=== PATIENT | female | born 1995 | race Caucasian/White ===

== ENCOUNTER 2016-08-05 13:25 | Outpatient (CLI) | payer MEDICAID ==
[2016-08-05] MEDS ORDERED: Cyclobenzaprine 10 MG Tab PO ONE (14:35)
== END 2016-08-05 16:10 | disposition home or self-care (01) ==
LOC: MW.OBCHECK 13:25 → MW.OB 13:27 → MW.OBCHECK 16:10
PROVIDERS: ATTEND Obstetrics & Gynecology
DX: O26.899 Other specified pregnancy related conditions, unspecified trimester (principal); M54.9 Dorsalgia, unspecified
CPT/HCPCS: 80305; 81003; A9270

== ENCOUNTER → 2016-09-02 | Outpatient (CLI) | payer MEDICAID ==
[2016-09-02 15:35] LABS: HIV12 AG/AB 4TH GEN W/REFLEX 0.2 (<1.0)
== END ==
LOC: MW.CHOBGYN 13:26
PROVIDERS: ATTEND Obstetrics & Gynecology
DX: O09.30 Supervision of pregnancy with insufficient antenatal care, unspecified trimester (principal)
CPT/HCPCS: 36415; 80305; 81003; 82950; 85027; 86592; 86762; 86803; 86850; 86900; 86901; 87086; 87340; 87389; 87480; 87491; 87510; 87591; 87660; G0145

== ENCOUNTER → 2016-09-09 | Outpatient (CLI) | payer MEDICAID ==
--- NOTE | 2016-09-09 16:31 | US ---
Examination: Greater than 14 weeks transabdominal ultrasound with color and spectral Doppler HISTORY: Supervision of FINDINGS: LMP is 02/08/2016 EVALUATION: Posterior placenta with a cephalic lie and grade 2. Visually amniotic fluid is wit hin normal limits. Three-vessel cord is seen. Ventricles are within normal limits. Four chamber heart is noted. Heart rate is 143 beats per minute. BIOMETRY AND GESTATIONAL AGE: Biparietal diameter 7.8 cm. The abdominal circumference measures 26.3 cm. The femoral length is 5.8 cm with head circumference of 20.7 cm. Gestational age is 30 weeks and 4 days. The expected date of delivery is approximately 11/11/2016. Fetus weight is 1596 grams. Overall the fetus is within the 37t h percentile. Limited anatomic survey due to gestational age. No anatomical anomalies identified. IMPRESSION: Single active IU with cephalic fetus. Posterior placenta with grade 2, no placenta previa. No anomalies are seen. Amniotic fluid appears within normal limits.
== END ==
LOC: MW.US 14:46
PROVIDERS: ATTEND Obstetrics & Gynecology
DX: O09.33 Supervision of pregnancy with insufficient antenatal care, third trimester (principal); R76.8 Other specified abnormal immunological findings in serum; Z3A.30 30 weeks gestation of pregnancy
CPT/HCPCS: 36415; 76805; 76805-26; 87522; 87902

== ENCOUNTER → 2016-10-01 | Outpatient (CLI) | payer MEDICAID | LOC: MW.CHOBGYN 14:34 | PROVIDERS: ATTEND Obstetrics & Gynecology | DX: Z34.90 Encounter for supervision of normal pregnancy, unspecified, unspecified trimester (principal); R76.8 Other specified abnormal immunological findings in serum | CPT/HCPCS: 36415; 80076; 81003 ==

== ENCOUNTER 2016-11-08 13:35 | Inpatient (IN) | payer MEDICAID ==
[2016-11-08] MEDS: Lactated Ringers 1,000 ML IV SCH (20:40)
[2016-11-08] MEDS ORDERED: Water For Irrigation,Sterile 1,000 ML Container IRR PRN (20:44)
[2016-11-08] MEDS ORDERED: Methylergonovine 0.2 MG/1 ML Amp IM PRN (20:44)
[2016-11-08] MEDS ORDERED: Nalbuphine 10 MG/1 ML Vial IVPUSH PRN (20:44)
[2016-11-08] MEDS ORDERED: Misoprostol 200 MCG Tab PO PRN (20:44)
[2016-11-08] MEDS ORDERED: Sodium Chloride 0.9% 2.5 ML Syringe FLUSH PRN (20:44)
[2016-11-08] MEDS ORDERED: Carboprost Tromethamine 250 MCG/1 ML Amp IM PRN (20:44)
[2016-11-08] MEDS ORDERED: Sodium Chloride 0.9% 10 ML Syringe FLUSH PRN (20:44)
[2016-11-08] MEDS ORDERED: Misoprostol 25 MCG (1/4 of 100 MCG) Tab PO PRN (20:44)
[2016-11-08] MEDS ORDERED: Terbutaline 1 MG/ML SDV SUBCUT PRN (20:44)
[2016-11-08] MEDS ORDERED: Lidocaine 1% 50 ML MDV INJECT PRN (20:44)
[2016-11-08] MEDS ORDERED: Misoprostol 25 MCG (1/4 of 100 MCG) Tab VAG PRN (20:44)
[2016-11-08] MEDS ORDERED: Misoprostol 25 MCG (1/4 of 100 MCG) Tab VAG SCH (20:45)
[2016-11-08] MEDS ORDERED: Oxytocin/Lactated Ringers 30 UNIT/500 ML BAG IV SCH ×2 (20:45)
[2016-11-08] MEDS ORDERED: Misoprostol 25 MCG (1/4 of 100 MCG) Tab PO SCH (20:45)
[2016-11-08] MEDS: Butorphanol 1 MG/ML SDV IVPUSH PRN (22:39)
--- NOTE | 2016-11-08 22:55 | PCM.LDHP ---
L&D History of Present Illness - General Date of Service: 11/08/16 Admit Problem/Dx: Patient Status Order with Admit Dx/Problem 11/08/16 20:44 Patient Status [ADT] Routine Admission Diagnosis/Problem Admission Diagnosis/Problem Source of Information: Patient History Limitations: Reports: No Limitations - History of Present Illness Pain Score: 7 Improves with: Reports: None Worsens with: Reports: None Associated Symptoms: Reports: N - Related Data Allergies/Adverse Reactions: Allergies Allergy/AdvReac Type Severity Reaction Status Date / Time Penicillins Allergy unknown Verified 10/25/16 00:04 Home Medications: Home Meds Azithromycin [Z-Luis] 250 mg PO DAILY #1 pack 02/10/14 [Rx] Lurasidone [Latuda] 20 mg PO DAILY 02/10/14 [History] Vit W-Ca,Fe,FA(<1 mg) [ Vitamins] 1 tab PO DAILY 10/25/16 [ History] Social & Family History - Tobacco Use Smoking Status *Q: Current Every Day Smoker Years of Tobacco use: 5 - Alcohol Use Days Per Week of Alcohol Use: 0 - Recreational Drug Use Recreational Drug Use: Yes Drug Use in Last 12 Months: Yes Recreational Drug Type: Reports: Marijuana/Hashish Recreational Drug Use Frequency: Binges H&P Review of Systems - Review of Systems: Review Of Systems: See Below General: Reports: No Symptoms HEENT: Reports: No Symptoms Pulmonary: Reports: No Symptoms Cardiovascular: Reports: No Symptoms Gastrointestinal: Reports: No Symptoms Genitourinary: Reports: No Symptoms Musculoskeletal: Reports: No Symptoms Skin: Reports: No Symptoms Psychiatric: Reports: No Symptoms Neurological: Reports: No Symptoms Hematologic/Lymphatic: Reports: No Symptoms Immunologic: Reports: No Symptoms L&D Exam - Exam Exam: See Below - Vital Signs Weight: 92.533 kg - OB Specific Fundal Height In cm: 39 Contraction Intensity: Mild Movement: Active Heart Tones: Present Heart Tones per Min: 133 Heart Rate (FHR) Variability: Moderate (6-25 bmp) Presentation: Vertex - Sierra Score Sierra Score Effacement: 31-50% Sierra Score Dilation: 1-2 cm Sierra Score 's Station: -2 - Patient Data Lab Results Last 24 hrs: Laboratory Results - last 24 hr 11/08/16 11/08/16 Range/Units 21:38 21:38 WBC 10.24 (4.0-11.0) K/uL RBC 3.86 L (4.30-5.90) M/uL Hgb 11.5 L (12.0-16.0) g/dL Hct 34.7 L (36.0-46.0) % MCV 89.9 (80.0-98.0) fL MCH 29.8 (27.0-32.0) pg MCHC 33.1 (31.0-37.0) g/dL RDW Std Deviation 46.7 (28.0-62.0) fl RDW Coeff of Gifty 14 (11.0-15.0) % Plt Count 187 (150-400) K/uL MPV 11.50 (7.40-12.00) fL Nucleated RBC % 0.0 /100WBC Nucleated RBCs # 0 K/uL Blood Type O POSITIVE Antibody Screen NEGATIVE Result Diagrams: 11/08/16 21:38 Problem List Initiated/Reviewed/Updated: Yes Orders Last 24hrs: Active Orders 24 hr Category Date Time Status Patient Status [ADT] Routine ADT 11/08/16 20:44 Active Bedrest Bathroom Privileges [RC] ASDIRECTED Care 11/08/16 20:44 Active Communication Order [RC] ASDIRECTED Care 11/08/16 20:44 Active Communication Order [RC] ASDIRECTED Care 11/08/16 20:44 Active Communication Order [RC] ASDIRECTED Care 11/08/16 20:44 Active Heart Tones [RC] CONTINUOUS Care 11/08/16 20:44 Active Non Stress Test [RC] PER UNIT ROUTINE Care 11/08/16 20:44 Active May Shower [RC] ASDIRECTED Care 11/08/16 20:44 Active Notify Provider [RC] PRN Care 11/08/16 20:44 Active Notify Provider [RC] PRN Care 11/08/16 20:44 Active Notify Provider [RC] PRN Care 11/08/16 20:44 Active Notify Provider [RC] STAT Care 11/08/16 20:44 Active Oxygen Therapy [RC] ASDIRECTED Care 11/08/16 20:44 Active Up ad Chel [RC] ASDIRECTED Care 11/08/16 20:44 Active Vaginal Exam [RC] PRN Care 11/08/16 20:44 Active Vaginal Exam [RC] PRN Care 11/08/16 20:44 Active Vital Signs [RC] PER UNIT ROUTINE Care 11/08/16 20:44 Active Vital Signs [RC] PER UNIT ROUTINE Care 11/08/16 20:44 Active Butorphanol [Stadol] Med 11/08/16 20:44 Active 1 mg IVPUSH ASDIRECTED PRN Carboprost Tromethamine [Hemabate DS] Med 11/08/16 20:44 Active 250 mcg IM ASDIRECTED PRN Lactated Ringers [Ringers, Lactated] 1,000 ml Med 11/08/16 20:45 Active IV ASDIRECTED Lidocaine 1% [Xylocaine 1%] Med 11/08/16 20:44 Active 50 ml INJECT .ONCE PRN Methylergonovine [Methergine] Med 11/08/16 20:44 Active 0.2 mg IM ASDIRECTED PRN Misoprostol [Cytotec] Med 11/08/16 20:44 Active 200 mcg PO .ONCE PRN Misoprostol [Cytotec] Med 11/08/16 20:45 Active 25 mcg PO .ONCE Misoprostol [Cytotec] Med 11/08/16 20:44 Active 25 mcg PO Q4H PRN Misoprostol [Cytotec] Med 11/08/16 20:45 Active 25 mcg VAG .ONCE Misoprostol [Cytotec] Med 11/08/16 20:44 Active 25 mcg VAG Q4H PRN Nalbuphine [Nubain] Med 11/08/16 20:44 Active 10 mg IVPUSH ASDIRECTED PRN Oxytocin/Lactated Ringers [Pitocin in LR 30 Units/500 Med 11/08/16 20:45 Active ML] 30 unit in 500 ml IV TITRATE Sodium Chloride 0.9% [Saline Flush] Med 11/08/16 20:44 Active 10 ml FLUSH ASDIRECTED PRN Sodium Chloride 0.9% [Saline Flush] Med 11/08/16 20:44 Active 2.5 ml FLUSH ASDIRECTED PRN Terbutaline [Brethine] Med 11/08/16 20:44 Active 0.25 mg SUBCUT ASDIRECTED PRN Water For Irrigation,Sterile [Sterile Water for Med 11/08/16 20:44 Active Irrigation] 1,000 ml IRR ASDIRECTED PRN Scalp Electrode [WOMSER] Per Unit Routine Oth 11/08/16 20:44 Ordered Medication Administration Instruction [OM.PC] Q3H Oth 11/08/16 20:45 Ordered Peripheral IV Insertion Adult [OM.PC] Routine Oth 11/08/16 20:44 Ordered Resuscitation Status Routine Resus Stat 11/08/16 20:44 Ordered Medication Orders Butorphanol Tartrate (Stadol) 1 mg IVPUSH ASDIRECTED PRN PRN Reason: Pain Last Admin: 11/08/16 22:39 Dose: 1 mg Carboprost Tromethamine (Hemabate Ds) 250 mcg IM ASDIRECTED PRN PRN Reason: Post Hemorrhage Lactated Ringer's (Ringers, Lactated) 1,000 mls @ 150 mls/hr IV ASDIRECTED RICKIE Oxytocin/Lactated Ringer's (Pitocin In Lr 30 Units/500 Ml) 30 unit in 500 mls @ 2 mls/hr IV TITRATE RICKIE; 2 MUNITS/MIN PRN Reason: Protocol Lidocaine HCl (Xylocaine 1%) 50 ml INJECT .ONCE PRN PRN Reason: Laceration repair Methylergonovine Maleate (Methergine) 0.2 mg IM ASDIRECTED PRN PRN Reason: Post Hemorrhage Misoprostol (Cytotec) 200 mcg PO .ONCE PRN PRN Reason: Post Hemorrhage Misoprostol (Cytotec) 25 mcg VAG .ONCE RICKIE Last Admin: 11/08/16 20:57 Dose: 25 mcg Misoprostol (Cytotec) 25 mcg VAG Q4H PRN PRN Reason: Cervical Ripening Stop: 11/10/16 00:45 Misoprostol (Cytotec) 25 mcg PO .ONCE RICKIE Misoprostol (Cytotec) 25 mcg PO Q4H PRN PRN Reason: Cervical Ripening Stop: 11/10/16 00:45 Nalbuphine HCl (Nubain) 10 mg IVPUSH ASDIRECTED PRN PRN Reason: Pain (severe 7-10) Stop: 11/10/16 20:45 Sodium Chloride (Saline Flush) 10 ml FLUSH ASDIRECTED PRN PRN Reason: Keep Vein Open Sodium Chloride (Saline Flush) 2.5 ml FLUSH ASDIRECTED PRN PRN Reason: Keep Vein Open Sterile Water (Sterile Water For Irrigation) 1,000 ml IRR ASDIRECTED PRN PRN Reason: delivery Terbutaline Sulfate (Brethine) 0.25 mg SUBCUT ASDIRECTED PRN PRN Reason: Tacysystole Assessment/Plan Comment:: Term admited for elective induction
[2016-11-09] MEDS: Butorphanol 1 MG/ML SDV IVPUSH PRN (04:31)
[2016-11-09] MEDS: Lactated Ringers 1,000 ML IV SCH ×3 (05:05→09:05)
[2016-11-09] MEDS ORDERED: fentaNYL 100 MCG/2 ML SDV ONE (05:05)
[2016-11-09] MEDS ORDERED: Ropivacaine 0.2% 2 MG/ML 20 ML SDV ONE (05:05)
[2016-11-09] MEDS ORDERED: ePHEDrine 50 MG/ML SDV ONE (06:00)
--- NOTE | 2016-11-09 06:17 | PCM.PREANE ---
Preanesthetic Assessment - Anesthesia/Transfusion/Family Hx Anesthesia History: Prior Anesthesia Without Reaction Family History of Anesthesia Reaction: No Transfusion History: No Prior Transfusion(s) - Review of Systems General: No Symptoms Pulmonary: No Symptoms Cardiovascular: No Symptoms Gastrointestinal: No symptoms Neurological: No Symptoms Other: Reports: None - Physical Assessment NPO Status Date: 11/09/16 NPO Status Time: 06:12 (cl liquids) Height: 1.57 m Weight: 92.533 kg ASA Class: 2 Mental Status: Alert & Oriented x3 Airway Class: Mallampati = 3 Dentition: Reports: Normal Dentition Thyro-Mental Finger Breadths: 3 Mouth Opening Finger Breadths: 3 ROM/Head Extension: Full Lungs: Clear to auscultation, Normal respiratory effort Cardiovascular: Regular Rate, Regular Rhythm - Lab Values: Laboratory Last Values WBC 10.24 K/uL (4.0-11.0) 11/08/16 21:38 RBC 3.86 M/uL (4.30-5.90) L 11/08/16 21:38 Hgb 11.5 g/dL (12.0-16.0) L 11/08/16 21:38 Hct 34.7 % (36.0-46.0) L 11/08/16 21:38 MCV 89.9 fL (80.0-98.0) 11/08/16 21:38 MCH 29.8 pg (27.0-32.0) 11/08/16 21:38 MCHC 33.1 g/dL (31.0-37.0) 11/08/16 21:38 RDW Std Deviation 46.7 fl (28.0-62.0) 11/08/16 21:38 RDW Coeff of Gifty 14 % (11.0-15.0) 11/08/16 21:38 Plt Count 187 K/uL (150-400) 11/08/16 21:38 MPV 11.50 fL (7.40-12.00) 11/08/16 21:38 Nucleated RBC % 0.0 /100WBC 11/08/16 21:38 Nucleated RBCs # 0 K/uL 11/08/16 21:38 Blood Type O POSITIVE 11/08/16 21:38 Antibody Screen NEGATIVE 11/08/16 21:38 - Allergies Allergies/Adverse Reactions: Allergies Allergy/AdvReac Type Severity Reaction Status Date / Time Penicillins Allergy unknown Verified 10/25/16 00:04 - Blood Blood Available: Yes Product(s) Available: PRBC - Acknowledgements Anesthesia Type Planned: Epidural Pt an Appropriate Candidate for the Planned Anesthesia: Yes Alternatives and Risks of Anesthesia Discussed w Pt/Guardian: Yes Pt/Guardian Understands and Agrees with Anesthesia Plan: Yes PreAnesthesia Questionnaire Respiratory History: Reports: Asthma Other Respiratory History: Uses MDI infrequently. Last use about 2 months ago. APRON TRIMMER History: Reports: Psychiatric History: Reports: Anxiety, Depression Other Oncologic History: Pt medical history indicates cervical cancer but patient denies any knowledge of this diagnosis. - Infectious Disease History Infectious Disease History: Reports: Hepatitis C - SUBSTANCE USE Smoking Status *Q: Current Every Day Smoker (States that she "vapes" in place of smoking cigarettes.) Second Hand Smoke Exposure: No Days Per Week of Alcohol Use: 0 Recreational Drug Use History: Yes Recreational Drug Type: Reports: Marijuana/Hashish, Methamphetamine (History of meth use, states quite about 4 yrs ago.) - HOME MEDS Home Medications: Home Meds Azithromycin [Z-Luis] 250 mg PO DAILY #1 pack 02/10/14 [Rx] Lurasidone [Latuda] 20 mg PO DAILY 02/10/14 [History] Vit W-Ca,Fe,FA(<1 mg) [ Vitamins] 1 tab PO DAILY 10/25/16 [ History] - CURRENT (IN HOUSE) MEDS Current Meds: Current Medications Butorphanol Tartrate (Stadol) 1 mg IVPUSH ASDIRECTED PRN PRN Reason: Pain Last Admin: 11/09/16 04:31 Dose: 1 mg Carboprost Tromethamine (Hemabate Ds) 250 mcg IM ASDIRECTED PRN PRN Reason: Post Hemorrhage Lactated Ringer's (Ringers, Lactated) 1,000 mls @ 150 mls/hr IV ASDIRECTED RICKIE Last Admin: 11/09/16 05:05 Dose: 150 mls/hr Oxytocin/Lactated Ringer's (Pitocin In Lr 30 Units/500 Ml) 30 unit in 500 mls @ 2 mls/hr IV TITRATE RICKIE; 2 MUNITS/MIN PRN Reason: Protocol Lidocaine HCl (Xylocaine 1%) 50 ml INJECT .ONCE PRN PRN Reason: Laceration repair Methylergonovine Maleate (Methergine) 0.2 mg IM ASDIRECTED PRN PRN Reason: Post Hemorrhage Misoprostol (Cytotec) 200 mcg PO .ONCE PRN PRN Reason: Post Hemorrhage Misoprostol (Cytotec) 25 mcg VAG .ONCE RICKIE Last Admin: 11/08/16 20:57 Dose: 25 mcg Misoprostol (Cytotec) 25 mcg VAG Q4H PRN PRN Reason: Cervical Ripening Stop: 11/10/16 00:45 Last Admin: 11/09/16 03:50 Dose: 25 mcg Misoprostol (Cytotec) 25 mcg PO .ONCE RICKIE Last Admin: 11/08/16 20:57 Dose: 25 mcg Misoprostol (Cytotec) 25 mcg PO Q4H PRN PRN Reason: Cervical Ripening Stop: 11/10/16 00:45 Last Admin: 11/09/16 03:50 Dose: 25 mcg Nalbuphine HCl (Nubain) 10 mg IVPUSH ASDIRECTED PRN PRN Reason: Pain (severe 7-10) Stop: 11/10/16 20:45 Sodium Chloride (Saline Flush) 10 ml FLUSH ASDIRECTED PRN PRN Reason: Keep Vein Open Sodium Chloride (Saline Flush) 2.5 ml FLUSH ASDIRECTED PRN PRN Reason: Keep Vein Open Sterile Water (Sterile Water For Irrigation) 1,000 ml IRR ASDIRECTED PRN PRN Reason: delivery Terbutaline Sulfate (Brethine) 0.25 mg SUBCUT ASDIRECTED PRN PRN Reason: Tacysystole Discontinued Medications Ephedrine Sulfate (Ephedrine Sulfate) Confirm Administered Dose 50 mg .ROUTE .STK-MED ONE Stop: 11/09/16 06:01 Fentanyl (Sublimaze) Confirm Administered Dose 100 mcg .ROUTE .STK-MED ONE Stop: 11/09/16 05:06 Oxytocin/Lactated Ringer's (Pitocin In Lr 30 Units/500 Ml) 30 unit in 500 mls @ 999 mls/hr IV ASDIRECTED RICKIE PRN Reason: 999 MUNITS/MIN Stop: 11/08/16 21:16 Ropivacaine/Fentanyl/NS (Fentanyl 2 Mcg-Ropiv 0.2%-Ns) Confirm Administered Dose 100 mls @ as directed .ROUTE .STK-MED ONE Stop: 11/09/16 05:06 Ropivacaine (Naropin 0.2%) Confirm Administered Dose 20 ml .ROUTE .STK-MED ONE Stop: 11/09/16 05:06 - Free Text/Narrative Note: Labor Analgesia/Epidural Procedure start date: 11/09/18 time: 0504 Attending provider aware Chart reviewed Permit signed Labs reviewed VS/FHR reviewed Pt identified/ID band Pt assessed Risks/Benefits discussed and accepted Monitors in place (BP, HR, SPO2) Patient, Site, Procedure Verification, Pause. Pt reports pain of "9/10". Is not currently in active labor, but is here for cytotec induction. Fluid bolus infused (fluid type and amount): 1000 ml LR infused Position: Sitting @ 0522 Prep: Betadine X 3 Sterile Drape Intradermal Wheal: 3 ml 1% Lidocaine Regional placement level: L3-4 Needle: 17 g Tuohy Approach: Midline Technique: IVONNE glass syringe w 3 ml Sterile water IVONNE needle depth: 6 cm Paresthesia: None Fluid Obtained: None Catheter insertion time: 528 Catheter depth at skin: 20cm Test Dose Time: 528 RX: 3 ml 1.5% lidocaine with 1:200,000 epi Response: Negative Loading dose Time: 7223-3860 RX: 100 mcg fentanyl followed by 6 ml 0.2% ropivacaine in 2 ml increments over 12 minutes Pt position: semi fowlers with JADE Continuous infusion Start Time: 548 RX: 100 ml 0.2% ropivacaine with 2mcg/ml fentanyl Continuous infusion rate: 8 ml/hr PROGRAMMER OR ANALYST bolus option: 5 ml q 15 min Pt response Post procedure pain level: Level achieved: VS and FHR monitored in unit post placement (See OB traceview for documentation. ) Pt received dose of Stadol IV at 0430. Loading dose reduced to prevent distress from combination of stadol adminstration and maternal hemodynamic changes from epidural. Pt hypotensive shortly after loading dose completed. Given ephedrine 10 mg IV at 0600. Pt was symptomatic with nausea/vomitting. BP returned to normal limits immediately. 0624: Pt with asymptomatic hypotension (99/56). Ephedrine 5 mg IVP given and epidural infusion paused until hemodynamic stability maintained. 0640: Pt BP stabalized. Comfortable with contractions. Epidural infusion restarted at rate of 7 ml/hr with PROGRAMMER OR ANALYST option of 5 ml every 15 minutes. No bolus given. 0702: Pt sleeping, comfortable with contractions. VSS since restarting epidural. FHR WNL. Procedure end date: 11/09/16 time: 701
[2016-11-09] MEDS ORDERED: Ondansetron 4 MG/2 ML SDV IVPUSH ONE (07:19)
--- NOTE | 2016-11-09 10:41 | PCM.PNLD ---
Labor Progress Note - VS & Meds Active Medications: Current Medications Butorphanol Tartrate (Stadol) 1 mg IVPUSH ASDIRECTED PRN PRN Reason: Pain Last Admin: 11/09/16 04:31 Dose: 1 mg Carboprost Tromethamine (Hemabate Ds) 250 mcg IM ASDIRECTED PRN PRN Reason: Post Hemorrhage Lactated Ringer's (Ringers, Lactated) 1,000 mls @ 150 mls/hr IV ASDIRECTED RICKIE Last Admin: 11/09/16 09:05 Dose: 150 mls/hr Oxytocin/Lactated Ringer's (Pitocin In Lr 30 Units/500 Ml) 30 unit in 500 mls @ 2 mls/hr IV TITRATE RICKIE; 2 MUNITS/MIN PRN Reason: Protocol Last Titration: 11/09/16 08:09 Dose: 4 munits/min, 4 mls/hr Lidocaine HCl (Xylocaine 1%) 50 ml INJECT .ONCE PRN PRN Reason: Laceration repair Methylergonovine Maleate (Methergine) 0.2 mg IM ASDIRECTED PRN PRN Reason: Post Hemorrhage Misoprostol (Cytotec) 200 mcg PO .ONCE PRN PRN Reason: Post Hemorrhage Misoprostol (Cytotec) 25 mcg VAG .ONCE RICKIE Last Admin: 11/08/16 20:57 Dose: 25 mcg Misoprostol (Cytotec) 25 mcg VAG Q4H PRN PRN Reason: Cervical Ripening Stop: 11/10/16 00:45 Last Admin: 11/09/16 03:50 Dose: 25 mcg Misoprostol (Cytotec) 25 mcg PO .ONCE RICKIE Last Admin: 11/08/16 20:57 Dose: 25 mcg Misoprostol (Cytotec) 25 mcg PO Q4H PRN PRN Reason: Cervical Ripening Stop: 11/10/16 00:45 Last Admin: 11/09/16 03:50 Dose: 25 mcg Nalbuphine HCl (Nubain) 10 mg IVPUSH ASDIRECTED PRN PRN Reason: Pain (severe 7-10) Stop: 11/10/16 20:45 Sodium Chloride (Saline Flush) 10 ml FLUSH ASDIRECTED PRN PRN Reason: Keep Vein Open Sodium Chloride (Saline Flush) 2.5 ml FLUSH ASDIRECTED PRN PRN Reason: Keep Vein Open Sterile Water (Sterile Water For Irrigation) 1,000 ml IRR ASDIRECTED PRN PRN Reason: delivery Terbutaline Sulfate (Brethine) 0.25 mg SUBCUT ASDIRECTED PRN PRN Reason: Tacysystole Discontinued Medications Ephedrine Sulfate (Ephedrine Sulfate) Confirm Administered Dose 50 mg .ROUTE .STK-MED ONE Stop: 11/09/16 06:01 Fentanyl (Sublimaze) Confirm Administered Dose 100 mcg .ROUTE .STK-MED ONE Stop: 11/09/16 05:06 Oxytocin/Lactated Ringer's (Pitocin In Lr 30 Units/500 Ml) 30 unit in 500 mls @ 999 mls/hr IV ASDIRECTED RICKIE PRN Reason: 999 MUNITS/MIN Stop: 11/08/16 21:16 Ropivacaine/Fentanyl/NS (Fentanyl 2 Mcg-Ropiv 0.2%-Ns) Confirm Administered Dose 100 mls @ as directed .ROUTE .STK-MED ONE Stop: 11/09/16 05:06 Ondansetron HCl (Zofran) 4 mg IVPUSH ONETIME ONE Stop: 11/09/16 07:20 Last Admin: 11/09/16 07:28 Dose: 4 mg Ropivacaine (Naropin 0.2%) Confirm Administered Dose 20 ml .ROUTE .STK-MED ONE Stop: 11/09/16 05:06 - Uterine Contractions Uterine Monitoring Mode: External [place] Contraction Intensity: Moderate Uterine Resting Tone: Soft - Monitoring Monitor Mode: External Ultrasound Heart Rate (FHR) Variability: Moderate (6-25 bmp) Accelerations: Present, 15x15 Decelerations: Variable Strip Review: Category I - Vaginal Exam Dilation (cm): 6-7 Effacement (Percent): 100 Station: -1 Cervical Position: Anterior Sterile Vaginal Exam Performed By: Froylan Wallace
[2016-11-09] MEDS ORDERED: Docusate Sodium 100 MG Cap PO PRN (13:20)
[2016-11-09] MEDS ORDERED: Witch Hazel Medicated Pads 40/Jar TOP PRN (13:20)
[2016-11-09] MEDS ORDERED: Acetaminophen 500 MG Tab PO PRN (13:20)
[2016-11-09] MEDS ORDERED: Ibuprofen 800 MG Tab PO PRN (13:20)
[2016-11-09] MEDS ORDERED: Ibuprofen 400 MG Tab PO PRN (13:20)
[2016-11-09] MEDS ORDERED: Lanolin 100% Cream 7 GM Tube TOP PRN (13:20)
[2016-11-09] MEDS ORDERED: Bisacodyl 10 MG Supp RECTAL PRN (13:20)
[2016-11-09] MEDS ORDERED: Benzocaine/Menthol 20%-0.5% Spray 78 GM Cannister TOP PRN (13:20)
[2016-11-09] MEDS: Acetaminophen 500 MG Tab PO PRN ×2 (18:09→22:37)
[2016-11-09] MEDS: oxyCODONE 5 MG Tab PO PRN (18:11)
--- NOTE | 2016-11-09 21:14 | OR ---
SURGEON: Froylan Wallace MD DATE OF PROCEDURE: Ms. Cobb is 21. She is para 1-0-0-1. She is term. She is followed in our office primarily by me. Her workup was essentially okay though she had positive for hepatitis C, otherwise everything was normal. Her GBS status was negative. Her diabetes screen was negative. She is admitted for elective induction. She responded to Cytotec. She had epidural anesthesia for labor analgesia. The patient progressed rather slowly, but anyhow she became complete complete and was able to accomplish normal spontaneous vaginal delivery of a male fetus. The score and the weight is not available at this time. The placenta delivered spontaneous, complete, and intact, and the perineum was intact. There is no laceration. There is no need for episiotomy. Estimated blood loss is 300-350 mL. heart rate was category 1 with some occasional variable deceleration with contraction, otherwise is was normal. There was no complication in this . KHOI / ESTELA /[id number]
[2016-11-10] MEDS: oxyCODONE 5 MG Tab PO PRN ×2 (00:22→07:45)
[2016-11-10] MEDS: Acetaminophen 500 MG Tab PO PRN (07:44)
[2016-11-10 09:24] VITALS: BP 121/59
--- NOTE | 2016-11-10 09:39 | PCM48HPAN ---
Post Anesthesia Note - EVALUATION WITHIN 48HRS OF ANESTHETIC Vital Signs in Normal Range: Yes Patient Participated in Evaluation: Yes Respiratory Function Stable: Yes Airway Patent: Yes Cardiovascular Function Stable: Yes Hydration Status Stable: Yes Pain Control Satisfactory: Yes Nausea and Vomiting Control Satisfactory: Yes Mental Status Recovered: Yes
--- NOTE | 2016-11-10 10:20 | PCM.PNPP ---
- General Info Date of Service: 11/10/16 Functional Status: Reports: pain controlled - Review of Systems General: Reports: No Symptoms HEENT: Reports: no symptoms Pulmonary: Reports: no symptoms Cardiovascular: Reports: No Symptoms Gastrointestinal: Reports: No symptoms Genitourinary: Reports: no symptoms Musculoskeletal: Reports: no symptoms Skin: Reports: no symptoms Neurological: Reports: No Symptoms Psychiatric: Reports: no symptoms - General Info Date of Service: 11/10/16 - Patient Data Vital Signs - most recent: Last Vital Signs Temp 36.2 C 11/10/16 08:25 Pulse 93 11/10/16 08:25 Resp 18 11/10/16 08:25 BP 121/59 L 11/10/16 08:25 Pulse Ox 97 11/10/16 08:25 Weight - most recent: 92.533 kg Lab Results - last 24 hrs: Laboratory Results - last 24 hr 11/10/16 Range/Units 04:18 Hgb 10.5 L (12.0-16.0) g/dL Hct 31.8 L (36.0-46.0) % Med Orders - Current: Current Medications Acetaminophen (Tylenol Extra Strength) 500 mg PO Q4H PRN PRN Reason: Pain Acetaminophen (Tylenol Extra Strength) 1,000 mg PO Q4H PRN PRN Reason: Pain Last Admin: 11/10/16 07:44 Dose: 1,000 mg Benzocaine/Menthol (Dermoplast Pain Relief 20%-0.5% [place]) 78 gm TOP ASDIRECTED PRN PRN Reason: Perineal Comfort Measure Last Admin: 11/09/16 18:12 Dose: 1 applic Bisacodyl (Dulcolax) 10 mg RECTAL .ONCE PRN PRN Reason: Constipation Butorphanol Tartrate (Stadol) 1 mg IVPUSH ASDIRECTED PRN PRN Reason: Pain Last Admin: 11/09/16 04:31 Dose: 1 mg Carboprost Tromethamine (Hemabate Ds) 250 mcg IM ASDIRECTED PRN PRN Reason: Post Hemorrhage Docusate Sodium (Colace) 100 mg PO BID PRN PRN Reason: Constipation Emollient Ointment (Lansinoh Hpa) 0 gm TOP ASDIRECTED PRN PRN Reason: Sore Nipples Lactated Ringer's (Ringers, Lactated) 1,000 mls @ 150 mls/hr IV ASDIRECTED RICKIE Last Admin: 11/09/16 09:05 Dose: 150 mls/hr Oxytocin/Lactated Ringer's (Pitocin In Lr 30 Units/500 Ml) 30 unit in 500 mls @ 2 mls/hr IV TITRATE RICKIE; 2 MUNITS/MIN PRN Reason: Protocol Last Titration: 11/09/16 08:09 Dose: 4 munits/min, 4 mls/hr Ibuprofen (Motrin) 400 mg PO Q4H PRN PRN Reason: Pain Ibuprofen (Motrin) 800 mg PO Q6H PRN PRN Reason: Pain Last Admin: 11/10/16 09:17 Dose: 800 mg Lidocaine HCl (Xylocaine 1%) 50 ml INJECT .ONCE PRN PRN Reason: Laceration repair Methylergonovine Maleate (Methergine) 0.2 mg IM ASDIRECTED PRN PRN Reason: Post Hemorrhage Misoprostol (Cytotec) 200 mcg PO .ONCE PRN PRN Reason: Post Hemorrhage Misoprostol (Cytotec) 25 mcg VAG .ONCE RICKIE Last Admin: 11/08/16 20:57 Dose: 25 mcg Misoprostol (Cytotec) 25 mcg PO .ONCE RICKIE Last Admin: 11/08/16 20:57 Dose: 25 mcg Nalbuphine HCl (Nubain) 10 mg IVPUSH ASDIRECTED PRN PRN Reason: Pain (severe 7-10) Stop: 11/10/16 20:45 Oxycodone HCl (Oxycodone) 5 mg PO Q2H PRN PRN Reason: Pain Last Admin: 11/10/16 07:45 Dose: 5 mg Sodium Chloride (Saline Flush) 10 ml FLUSH ASDIRECTED PRN PRN Reason: Keep Vein Open Sodium Chloride (Saline Flush) 2.5 ml FLUSH ASDIRECTED PRN PRN Reason: Keep Vein Open Sterile Water (Sterile Water For Irrigation) 1,000 ml IRR ASDIRECTED PRN PRN Reason: delivery Terbutaline Sulfate (Brethine) 0.25 mg SUBCUT ASDIRECTED PRN PRN Reason: Tacysystole Witch [place] (Tucks) 1 pad TOP ASDIRECTED PRN PRN Reason: comfort care Last Admin: 11/09/16 18:13 Dose: 1 applic Discontinued Medications Ephedrine Sulfate (Ephedrine Sulfate) Confirm Administered Dose 50 mg .ROUTE .STK-MED ONE Stop: 11/09/16 06:01 Last Admin: 11/10/16 09:19 Dose: Not Given Fentanyl (Sublimaze) Confirm Administered Dose 100 mcg .ROUTE .STK-MED ONE Stop: 11/09/16 05:06 Last Admin: 11/10/16 09:19 Dose: Not Given Oxytocin/Lactated Ringer's (Pitocin In Lr 30 Units/500 Ml) 30 unit in 500 mls @ 999 mls/hr IV ASDIRECTED RICKIE PRN Reason: 999 MUNITS/MIN Stop: 11/08/16 21:16 Last Admin: 11/10/16 09:28 Dose: Not Given Ropivacaine/Fentanyl/NS (Fentanyl 2 Mcg-Ropiv 0.2%-Ns) Confirm Administered Dose 100 mls @ as directed .ROUTE .STK-MED ONE Stop: 11/09/16 05:06 Last Admin: 11/10/16 09:19 Dose: Not Given Misoprostol (Cytotec) 25 mcg VAG Q4H PRN PRN Reason: Cervical Ripening Stop: 11/10/16 00:45 Last Admin: 11/09/16 03:50 Dose: 25 mcg Misoprostol (Cytotec) 25 mcg PO Q4H PRN PRN Reason: Cervical Ripening Stop: 11/10/16 00:45 Last Admin: 11/09/16 03:50 Dose: 25 mcg Ondansetron HCl (Zofran) 4 mg IVPUSH ONETIME ONE Stop: 11/09/16 07:20 Last Admin: 11/09/16 07:28 Dose: 4 mg Ropivacaine (Naropin 0.2%) Confirm Administered Dose 20 ml .ROUTE .STK-MED ONE Stop: 11/09/16 05:06 Last Admin: 11/10/16 09:19 Dose: Not Given - Interaction Support Person: - Recovery Exam Fundal Tone: Firm Fundal Level: 1 Fingerbreadths Below Umbilicus Fundal Placement: Midline Lochia Amount: Scant Lochia Color: Rubra/Red Perineum Description: Intact, Minimal Bruising/Swelling Episiotomy/Laceration: Approximated Bladder Status: Nonpalpable Urinary Elimination: Voided - Exam General: alert, oriented HEENT: Pupils equal Neck: supple Lungs: Clear to auscultation, Normal respiratory effort Cardiovascular: Regular Rate, Regular Rhythm Abdomen: bowel sounds present, soft, no tenderness, no distension Extremities: no edema Skin: warm, dry, intact Wound/Incisions: healing well Neurological: no new focal deficit Psy/Mental Status: alert, normal affect, normal mood - Problem List Review Problem List Initiated/Reviewed/Updated: Yes - My Orders Last 24 Hours: My Active Orders 11/09/16 13:20 Patient Status [ADT] Routine May Shower [RC] ASDIRECTED Up ad Chel [RC] ASDIRECTED Vital Signs [RC] PER UNIT ROUTINE Acetaminophen [Tylenol Extra Strength] 1,000 mg PO Q4H PRN Acetaminophen [Tylenol Extra Strength] 500 mg PO Q4H PRN Benzocaine/Menthol [Dermoplast Pain Relief 20%-0.5% [place]] 78 gm TOP ASDIRECTED PRN Bisacodyl [Dulcolax] 10 mg RECTAL .ONCE PRN Docusate Sodium [Colace] 100 mg PO BID PRN Ibuprofen [Motrin] 400 mg PO Q4H PRN Ibuprofen [Motrin] 800 mg PO Q6H PRN Lanolin [Lansinoh HPA] See Dose Instructions TOP ASDIRECTED PRN Witch [place] [Tucks] 1 pad TOP ASDIRECTED PRN oxyCODONE 5 mg PO Q2H PRN Assess Lochia [WOMSER] Per Unit Routine Assess Uterine Involution [WOMSER] Per Unit Routine Peripheral IV Discontinue [OM.PC] Routine - Plan Plan:: Term admited for elective induction
== END 2016-11-10 15:35 | disposition home or self-care (01) | DRG 774 ==
LOC: MW.OB 13:35 → OBSVTOIN 11-09 13:35
PROVIDERS: ADMIT Obstetrics & Gynecology; ATTEND Obstetrics & Gynecology
PROC: 10E0XZZ Delivery of Products of Conception, External Approach (ICD-10-PCS; principal; 2016-11-09)
PROC: 3E0P7GC Introduction of Other Therapeutic Substance into Female Reproductive, Via Natural or Artificial Opening (ICD-10-PCS; 2016-11-09)
DX: O98.42 Viral hepatitis complicating childbirth (principal); B19.20 Unspecified viral hepatitis C without hepatic coma; Z3A.37 37 weeks gestation of pregnancy; Z37.0 Single live birth
CPT/HCPCS: 01967; 36415; 59025; 85014; 85018; 85027; 86850; 86900; 86901; A9270-GY; J0595; J2405; J7120